=== PATIENT | female | born 1960 | race Caucasian/White ===

== ENCOUNTER 2021-11-25 09:17 | Emergency (ER) | payer BC, MEDICAID ==
[~2021-11-25] VITALS: Ht 160 cm; Wt 72.1 kg
[~2021-11-25 09:17] MED LIST: ARIP5TAB15 PO; CLON1TAB; ESCI5TAB; LAMO200T2 PO; LAMO25CH17; SUCR1TAB
[2021-11-25] MEDS ORDERED: SODIUM CHLORIDE 0.9% 1,000 ML IV ONE (10:15)
[2021-11-25] MEDS ORDERED: SODIUM CHLORIDE 0.9% 500 ML IVB ONE (10:15)
[2021-11-25] MEDS ORDERED: HYDROmorphone HCL 2 MG/ML VL IV ONE (10:15)
[2021-11-25] MEDS ORDERED: PROMETHAZINE HCL 25 MG/ML 1ML IV PRN (10:15)
[2021-11-25 11:01] LABS: Basophils # (auto) 0.1 10 ^3/uL (0-0.2); Eosinophils # (auto) 0.2 10 ^3/uL (0-0.8); Eosinophils % (auto) 1.2 % (0.0-7.0); Hematocrit 42.4 % (36.0-46.0); Hemoglobin 14.7 g/dL (12.2-16.2); Lymphocytes # (auto) 2.7 10 ^3/uL (0.4-5.4); Lymphocytes % (auto) 20.2 % (10.0-50.0); Mean Corpuscular Hemoglobin 30.6 pg (28.0-32.0); Mean Corpuscular Hgb Conc. 34.6 g/dL (32.0-36.0); Mean Corpuscular Volume 88.2 fL (80.0-100.0); Monocytes # (auto) 0.8 10 ^3/uL (0-1.3); Neutrophils # (auto) 9.7 10 ^3/uL (1.6-8.6); Neutrophils % (auto) 71.6 % (37.0-80.0); Nucleated Red Blood Cells % 0.1 %; Red Blood Cells 4.81 10^6/uL (4.0-5.20); Red Cell Distribution Width 12.9 % (11.8-14.3); White Blood Cell 13.6 10^3/uL (4.4-10.8)
[2021-11-25 11:22] LABS: Anion Gap 10 (5-15); Blood Urea Nitrogen 7 mg/dL (7-18); Calcium 9.2 mg/dL (8.5-10.1); Carbon Dioxide 23 mmol/L (21-32); Chloride 100 mmol/L (98-107); Glucose 133 mg/dL (74-106); Potassium 3.5 mmol/L (3.5-5.1); Sodium 133 mmol/L (136-145)
[2021-11-25 11:24] LABS: Urine Bacteria FEW /hpf (None Seen); Urine Blood 2+ /uL (Negative); Urine Mucus FEW (None Seen); Urine Specific Gravity 1.015 (1.001-1.035); Urine WBC 345 /hpf (0 - 5)
[2021-11-25 11:28] LABS: Alanine Aminotransferase 67 U/L (13-56); Alkaline Phosphatase 82 U/L (45-117); Aspartate Aminotransferase 41 U/L (15-37); BUN/Creatinine Ratio 10.4; Bilirubin, Total 0.4 mg/dL (0.2-1.0); GFR African American 114 mL/min; GFR Non-African American 94 mL/min; Total Protein 7.6 g/dL (6.4-8.2)
[2021-11-25 11:33] LABS: Magnesium 2.1 mg/dL (1.6-2.6)
[2021-11-25] MEDS ORDERED: cefTRIAXone 1GM/50ML D5W 50 ML IV ONE (12:00)
[2021-11-25] MEDS ORDERED: hydrALAZINE HCL 20 MG/ML VL IV ONE (13:45)
[2021-11-25 14:05] VITALS: BP 167/104
== END 2021-11-25 14:14 | disposition home or self-care (01) ==
LOC: EDBD 09:17 → ER 09:17
DX: N12 Tubulo-interstitial nephritis, not specified as acute or chronic (principal); R74.8 Abnormal levels of other serum enzymes; K76.0 Fatty (change of) liver, not elsewhere classified; J45.909 Unspecified asthma, uncomplicated; F12.10 Cannabis abuse, uncomplicated; E78.5 Hyperlipidemia, unspecified; I10 Essential (primary) hypertension
CPT/HCPCS: 36415; 71045; 74176; 80053; 81001; 83690; 83735; 84443; 84484; 85025; 93005; 96361; 96365; 96375; 99285; J0360; J0696; J1170; J2550; J7030

== ENCOUNTER 2022-01-14 16:55 | Emergency (ER) | payer MEDICAID ==
[~2022-01-14] VITALS: Ht 160 cm; Wt 71.2 kg
[2022-01-14] MEDS ORDERED: cloNIDine HCL 0.1 MG TAB ONE ×2 (17:07→17:09)
[2022-01-14] MEDS ORDERED: cloNIDine HCL 0.1 MG TAB PO ONE (17:30)
[2022-01-14 19:48] LABS: Basophils # (auto) 0.1 10 ^3/uL (0-0.2); Basophils % (auto) 0.4 % (0.0-2.0); Eosinophils # (auto) 0 10 ^3/uL (0-0.8); Eosinophils % (auto) 0.2 % (0.0-7.0); Hematocrit 43.5 % (36.0-46.0); Hemoglobin 15.2 g/dL (12.2-16.2); Lymphocytes % (auto) 19.2 % (10.0-50.0); Mean Corpuscular Volume 85.9 fL (80.0-100.0); Monocytes # (auto) 0.9 10 ^3/uL (0-1.3); Monocytes % (auto) 5.5 % (0.0-12.0); Neutrophils # (auto) 11.8 10 ^3/uL (1.6-8.6); Neutrophils % (auto) 74.7 % (37.0-80.0); Nucleated Red Blood Cells % 0.2 %; Red Blood Cells 5.06 10^6/uL (4.0-5.20); Red Cell Distribution Width 12.8 % (11.8-14.3); White Blood Cell 15.8 10^3/uL (4.4-10.8)
[2022-01-14 20:02] LABS: Urine Bacteria MANY /hpf (None Seen); Urine Blood 1+ /uL (Negative); Urine Mucus FEW (None Seen); Urine Specific Gravity 1.018 (1.001-1.035); Urine WBC 60 /hpf (0 - 5)
[2022-01-14 20:05] LABS: Albumin 4.4 g/dL (3.4-5.0); Anion Gap 14 (5-15); Blood Urea Nitrogen 12 mg/dL (7-18); Calcium 9.5 mg/dL (8.5-10.1); Carbon Dioxide 23 mmol/L (21-32); Chloride 95 mmol/L (98-107); Glucose 125 mg/dL (74-106); Magnesium 2.1 mg/dL (1.6-2.6); Potassium 4.1 mmol/L (3.5-5.1); Sodium 132 mmol/L (136-145)
[2022-01-14 20:07] LABS: Alanine Aminotransferase 60 U/L (13-56); Aspartate Aminotransferase 38 U/L (15-37); BUN/Creatinine Ratio 16.7; GFR African American 105 mL/min; GFR Non-African American 87 mL/min
[2022-01-14 20:09] LABS: Alkaline Phosphatase 75 U/L (45-117); Bilirubin, Total 0.7 mg/dL (0.2-1.0); Total Protein 8.2 g/dL (6.4-8.2)
[2022-01-14] MEDS ORDERED: CIPR500T4 PO (21:03)
[2022-01-14] MEDS ORDERED: SODIUM CHLORIDE 0.9% 1,000 ML IV ONE (22:15)
[2022-01-14 23:15] VITALS: BP 145/70
[2022-01-16] MEDS ORDERED: PERCOT PO (06:04)
[2022-01-16] MEDS ORDERED: METR500T PO (06:04)
== END 2022-01-15 00:53 | disposition home or self-care (01) ==
LOC: ER 16:55
DX: I10 Essential (primary) hypertension (principal); N39.0 Urinary tract infection, site not specified; I45.10 Unspecified right bundle-branch block; R74.01 Elevation of levels of liver transaminase levels; E78.5 Hyperlipidemia, unspecified; E03.9 Hypothyroidism, unspecified; J45.909 Unspecified asthma, uncomplicated; Z87.891 Personal history of nicotine dependence; Z90.49 Acquired absence of other specified parts of digestive tract; Z79.899 Other long term (current) drug therapy
CPT/HCPCS: 36415; 71046; 80053; 81001; 83735; 84443; 84484; 85025; 93005; 96360; 99285; J7030

== ENCOUNTER 2022-01-15 19:41 | Emergency (ER) | payer MEDICAID ==
[~2022-01-15] VITALS: Ht 160 cm; Wt 73.5 kg
[~2022-01-15 19:41] MED LIST changes: +CIPR500T4 PO
[2022-01-15] MEDS ORDERED: SODIUM CHLORIDE 0.9% 1,000 ML IV ONE (20:30)
[2022-01-15 21:08] LABS: Basophils # (auto) 0.3 10 ^3/uL (0-0.2); Basophils % (auto) 2.2 % (0.0-2.0); Eosinophils # (auto) 0.2 10 ^3/uL (0-0.8); Eosinophils % (auto) 1.5 % (0.0-7.0); Hematocrit 39.8 % (36.0-46.0); Hemoglobin 13.6 g/dL (12.2-16.2); Lymphocytes # (auto) 2.3 10 ^3/uL (0.4-5.4); Lymphocytes % (auto) 19.6 % (10.0-50.0); Mean Corpuscular Hemoglobin 29.2 pg (28.0-32.0); Mean Corpuscular Hgb Conc. 34.1 g/dL (32.0-36.0); Mean Corpuscular Volume 85.6 fL (80.0-100.0); Monocytes # (auto) 0.9 10 ^3/uL (0-1.3); Monocytes % (auto) 7.3 % (0.0-12.0); Neutrophils # (auto) 8.1 10 ^3/uL (1.6-8.6); Neutrophils % (auto) 69.4 % (37.0-80.0); Nucleated Red Blood Cells % 0.1 %; Red Blood Cells 4.65 10^6/uL (4.0-5.20); Red Cell Distribution Width 12.5 % (11.8-14.3); White Blood Cell 11.7 10^3/uL (4.4-10.8)
[2022-01-15 21:30] LABS: Potassium 3.6 mmol/L (3.5-5.1)
[2022-01-15 21:34] LABS: Albumin 3.9 g/dL (3.4-5.0); BUN/Creatinine Ratio 21.8; Calcium 8.8 mg/dL (8.5-10.1)
[2022-01-15 21:37] LABS: Bilirubin, Total 0.6 mg/dL (0.2-1.0); Total Protein 7.5 g/dL (6.4-8.2)
[2022-01-15] MEDS ORDERED: IOHEXOL 300 MG/ML 100ML BOTTLE IJ ONE (21:59)
[2022-01-16 05:43] VITALS: BP 175/83
[2022-01-16 05:47] LABS: Urine Bacteria FEW /hpf (None Seen); Urine Blood 2+ /uL (Negative); Urine Specific Gravity 1.018 (1.001-1.035); Urine WBC 5 /hpf (0 - 5)
[2022-01-16] MEDS ORDERED: METR500T PO (06:04)
[2022-01-16] MEDS ORDERED: PERCOT PO (06:04)
== END 2022-01-16 06:38 | disposition home or self-care (01) ==
LOC: EDUNIT# 19:41 → EDBD 19:41 → ER 19:41
DX: R10.84 Generalized abdominal pain (principal); I10 Essential (primary) hypertension; E03.9 Hypothyroidism, unspecified; E78.5 Hyperlipidemia, unspecified; J45.909 Unspecified asthma, uncomplicated; Z90.49 Acquired absence of other specified parts of digestive tract; Z87.891 Personal history of nicotine dependence; Z79.899 Other long term (current) drug therapy
CPT/HCPCS: 36415; 74176; 80053; 81001; 83605; 83690; 84484; 85025; 93005; 99285; Q9967